=== PATIENT | female | born 1955 | race Hispanic/Latino ===

== ENCOUNTER 2025-05-07 05:56 | Day surgery (SDC) | payer BC ==
[2025-05-07] VITALS (12 sets, daily range): BP systolic 127–162; BP diastolic 64–87; PULSE 74–81; RESP 15–18; TEMP 97.1–97.6
[~2025-05-07] VITALS: Ht 165.1 cm; Wt 118.4 kg
[~2025-05-07 05:56] MED LIST: ACET-2743 PO; LORA-997 PO; METO10TA3 PO; ONDA-104 PO; PANT40TA54 PO
[2025-05-07] MEDS: 0.9%NACL 1000ML 1,000 ML IV ONE (08:30)
[2025-05-07] MEDS ORDERED: LIDOCAINE HCL 1% 20 ML VIAL ONE (10:49)
--- NOTE | 2025-05-07 12:46 | OP ---
Operative Note: DATE OF PROCEDURE: 05/07/25 SURGEON: PAXTON MCDONOUGH MD SAFETY RISK LEAD: [] ANESTHESIA: [] Conscious sedation ANESTHESIOLOGIST/ELEMENTARY EDUCATION TUTOR: [] PREOPERATIVE DIAGNOSIS: [] Gastrojejunostomy anastomosis stricture POSTOPERATIVE DIAGNOSIS: [] The same SYNOPSIS: [] PROCEDURE: [] Upper endoscopy with dilatation under fluoroscopy ESTIMATED BLOOD LOSS: [] Minimal INDICATIONS: [] DESCRIPTION OF PROCEDURE: [] With the patient and conscious sedation I started doing an upper endoscopy with a pediatric scope. I was able to pass a wire it was confirmed with fluoroscopy. Then sequentially started placing bougie dilators from 8 mm in diameter to 50 mm. We confirmed each passage with the fluoroscopy. After this was done I placed a regular scope and I was able to pass easily the anastomosis and I dilated with a CRE balloon from 15, 16.5, and 18 mm. Each side was left in place for1 minute. At the end we were able to pass the scope easily without much obstruction. We suctioned all the fluid and air and removed the skull. The procedure was completed without complications PAXTON MCDONOUGH MD May 07, 2025 12:46
--- NOTE | 2025-05-10 13:37 | HMCIMG ---
The total fluoroscopy time has been reported in the electronic medical record. The interpreting radiologist was not present during the procedure /[place]
--- NOTE | 2025-05-11 18:49 | OP ---
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 I was able to pass a wire all the way down to the jejunum. I confirmed this position with fluoroscopy. Then sequentially I started to place a bougie dilators from 8 mm in diameter up to 15 mm in diameter. The passage of the dilator were confirmed under fluoroscopy. After this was done I retrieved the pediatric scope and placed a regular scope. I was able to pass a balloon dilator 15 I insufflated the balloon to , 16 and18 mm size and left it in place1 minute issue diameter. I retrieved the balloon and I was able to see a wide patent anastomosis with no major bleeding. I suctioned all the fluid and air and then retrieved the scope. Procedure was completed without any complications PAXTON MCDONOUGH MD May 11, 2025 18:49
== END 2025-05-07 12:55 | disposition home or self-care (01) ==
LOC: DAH 05:56 → ENDO 05:56
PROVIDERS: ATTEND Surgery
DX: K56.699 Other intestinal obstruction unspecified as to partial versus complete obstruction (principal); K21.9 Gastro-esophageal reflux disease without esophagitis; Z90.49 Acquired absence of other specified parts of digestive tract; Z98.84 Bariatric surgery status; Z79.899 Other long term (current) drug therapy
CPT/HCPCS: 43249; J2003; J7030; J2704 ×3; A4620; A4215 ×2; A4223; A7002; A4222; A4221; A4663; A4606; C1726; 43248; 76000; J3490